=== PATIENT | female | born 1970 | race Caucasian/White ===

== ENCOUNTER 2023-08-11 07:03 | Day surgery (SDC) | payer BC ==
[2023-08-06 17:18] LABS: BILIRUBIN,URINE NEGATIVE (NEGATIVE); BLOOD, URINE 1+ (NEGATIVE); CLARITY/URINE CLEAR (CLEAR); COLOR,URINE YELLOW (YELLOW); GLUCOSE,URINE NEGATIVE (NEGATIVE); KETONES,URINE NEGATIVE (NEGATIVE); LEUKOCYTE ESTERASE ,URINE NEGATIVE (NEGATIVE); NITRITE, URINE NEGATIVE (NEGATIVE); PROTEIN URINE NEGATIVE (NEGATIVE); UROBILINOGEN,URINE 0.2 (0.2-1.0)
[2023-08-06 17:32] LABS: HCG,QUAL RESULT NEGATIVE (NEGATIVE)
[2023-08-06 18:07] LABS: BACTERIA,URINE RARE /HPF (None Seen); WBC,URINE 0-3 /HPF (0-3)
[2023-08-09 10:23] LABS: EOSINOPHILS # (AUTO) 0.1 K/uL (0.0-0.4); EOSINOPHILS % (AUTO) 1.7 % (0.0-4.0); HEMATOCRIT 42.3 % (36-48); LYMPHOCYTES # (AUTO) 1.6 K/uL (1.0-5.5); MEAN CORPUSCULAR HEMOGLOBIN 27 pg (27-31); MEAN CORPUSCULAR HGB CONC 33 % (32-36); MEAN CORPUSCULAR VOLUME 80 fL (79.0-98.0); MONOCYTES # (AUTO) 0.3 K/uL (0.0-1.0); NEUTROPHILS # (AUTO) 2.3 K/uL (1.8-7.7); NEUTROPHILS % (AUTO) 54.3 % (40.0-70.0); PLATELET COUNT (AUTO) 269 K/uL (130-430); RED BLOOD CELL COUNT(AUTO) 5.29 MIL/uL (4.2-6.2); RED CELL DISTRIBUTION WIDTH 19.7 % (9.0-15.0); WHITE BLOOD COUNT (AUTO) 4.3 K/uL (4.8-10.8)
[2023-08-09 10:27] LABS: PROTHROMBIN TIME 10.4 SECS (9.5-12.5)
[2023-08-09 10:33] LABS: ALBUMIN 4.1 g/dL (3.4-4.8); CALCIUM 9.2 mg/dL (8.4-11.0); CREATININE 0.74 mg/dL (0.55-1.30); POTASSIUM 4.1 mmol/L (3.5-5.1); TOTAL BILIRUBIN 0.6 mg/dL (0.0-1.0); TOTAL PROTEIN, SERUM 7.7 g/dL (6.4-8.3)
[~2023-08-11] VITALS: Ht 177.8 cm; Wt 97.1 kg
[2023-08-11 07:36] LABS: HCG,QUAL RESULT NEGATIVE (NEGATIVE)
[2023-08-11] MEDS ORDERED: METOCLOPRAMIDE HCL 10 MG/2 ML VIAL ONE (08:35)
[2023-08-11] MEDS ORDERED: HYDROmorphone 2 MG/ML VIAL IVP PRN (09:15)
[2023-08-11] MEDS ORDERED: KETOROLAC TROMETHAMINE 30 MG VIAL IVP PRN (09:15)
[2023-08-11] MEDS ORDERED: LR 1,000 ML IV SCH (09:15)
[2023-08-11] MEDS ORDERED: HYDROmorphone 1 MG/ML INJ. CARTRIDGE IVP PRN (09:15)
[2023-08-11] MEDS ORDERED: ONDANSETRON HCL 4 MG/2 ML VIAL IVP PRN ×2 (09:15→10:00)
[2023-08-11] MEDS ORDERED: IBUPROFEN 800 MG TABLET PO PRN (10:00)
[2023-08-11 12:12] VITALS: O2SAT 96
[2023-08-11 17:12] VITALS: BP_SYST 131; PULSE 69; RESP 18
== END 2023-08-11 12:25 | disposition home or self-care (01) ==
LOC: SDS 07:03 → SMU 07:04 → SDS 12:25
PROVIDERS: ATTEND Obstetrics & Gynecology Gynecology
DX: D25.0 Submucous leiomyoma of uterus (principal); R92.1 Mammographic calcification found on diagnostic imaging of breast; R93.89 Abnormal findings on diagnostic imaging of other specified body structures; N84.0 Polyp of corpus uteri; I10 Essential (primary) hypertension; E66.01 Morbid (severe) obesity due to excess calories; Z68.30 Body mass index [BMI] 30.0-30.9, adult; Z88.0 Allergy status to penicillin; Z88.5 Allergy status to narcotic agent; Z79.899 Other long term (current) drug therapy
CPT/HCPCS: 81000; 81001; 84703 ×2; 87081; 93005; 71046; 80053; 85025; 85610; 85730; 86886; 86900; 86901; 36415; 58561; 88305; J1885; J2765; J3465; J2405; J2704; J3010; J7120; C1819; 81015